=== PATIENT | female | born 1975 | race Caucasian/White ===

== ENCOUNTER → 2024-11-20 | Outpatient (CLI) | payer OTHER, SELFPAY ==
[2024-11-20 10:11] LABS: Collection Type, Urine Clean Catch
[2024-11-20 10:25] LABS: Basophils % (Auto) 1 % (0-2.5); Eosinophils # (Auto) 0.1 Thou/mm3 (0.0-0.5); Eosinophils % (Auto) 1 % (0-10); Hematocrit 34.3 % (36.0-46.0); Hemoglobin 11.7 g/dL (12.0-16.0); Immature Granulocytes % (Auto) 0 % (0-0); Immature Granulocytes Auto 0.02 Thou/mm3 (0.00-0.00); Lymphocytes # (Auto) 2.1 Thou/mm3 (1.0-4.8); Lymphocytes % (Auto) 36 % (10-50); Mean Corpuscular HGB Conc 34.1 g/dl (31.0-37.0); Mean Corpuscular Hemoglobin 29.8 pg (25.0-35.0); Mean Corpuscular Volume 87 fL (80-100); Monocytes # (Auto) 0.3 Thou/mm3 (0.0-0.8); Monocytes % (Auto) 5 % (0-12); Neutrophils # (Auto) 3.3 Thou/mm3 (1.8-7.7); Neutrophils % (Auto) 57 % (37-80); Nucleated Red Blood Cell % 0 /100 WBC (0); Platelet Count 268 Thou/mm3 (140-440); RDW Standard Deviation 42.5 fL (36.4-46.3); Red Blood Count 3.93 Miln/mm3 (4.00-5.20); White Blood Count 5.8 Thou/mm3 (3.6-11.0)
[2024-11-20 10:36] LABS: Bilirubin,Urine Negative (Negative); Blood,Urine Negative (Negative); Clarity,Urine Clear (Clear/Hazy); Color,Urine Lt-Yellow (Lt Yel-Yel); Glucose, Urine Negative (Negative); Ketones,Urine Negative (Negative); Leukocyte Esterase,Urine Positive (Negative); Nitrite,Urine Negative (Negative); PH,Urine 5.5 (5.0-7.0); Protein,Urine Negative (Neg - Trace); RBC,Urine 1 /hpf (0-3); Specific Gravity,Urine 1.018 (1.001-1.035); Squamous Epithelial Cell,Urine 8 /hpf (0-5); Urobilinogen,Urine Negative mg/dL (0.0-1.0); WBC,Urine 4 /hpf (0-5)
[2024-11-20 10:56] LABS: Ferritin 10 ng/mL (7.3-270.7)
[2024-11-20 11:03] LABS: Alanine Aminotransferase 16 U/L (10-49); Alkaline Phosphatase 99 U/L (46-116); Anion Gap 7 (7-16); Aspartate Amino Transferase < 8 U/L (0-34); BUN/Creatinine Ratio 13 Ratio (12-20); Bilirubin,Total 0.5 mg/dL (0.3-1.2); Blood Urea Nitrogen 8 mg/dL (9-23); Calcium 8.8 mg/dL (8.3-10.6); Calcium (Corrected) 8.8 mg/dL (8.5-10.1); Carbon Dioxide 26.6 mMol/L (20.0-31.0); Cardiac Risk Estimate 3.1 RATIO (3.7-5.6); Chloride 107 mMol/L (98-107); Cholesterol 173 mg/dL (132-200); Creatinine (Component) 0.6 mg/dL (0.6-1.3); Glucose 86 mg/dL (74-106); HDL Cholesterol 56 mg/dL (40-60); LDL Cholesterol,Calculated 84 mg/dL (0-130); Osmolality,Calculated 278 (275-295); Potassium 4.4 mMol/L (3.4-5.1); Sodium 141 mMol/L (136-145); Thyroid Stimulating Hormone 1.44 uIU/mL (0.55-4.78); Triglycerides 167 mg/dL (30-150); Uric Acid 4.9 mg/dL (3.1-7.8); Vitamin B12 > 2000 pg/mL (211-911); Vitamin D 25 Hydroxy Total 31.5 ng/mL (7.3-40.2); eGFR > 60 See Note
[2024-11-20 11:58] LABS: Glucose Estimated Average 105 mg/dL (80-131); Hemoglobin A1C 5.3 % Hgb (4.8-6.0)
== END | disposition home or self-care (01) ==
LOC: COPL 09:44
PROVIDERS: PCP Internal Medicine; Referring Provider Internal Medicine; Visit Provider Internal Medicine
DX: Z00.00 Encounter for general adult medical examination without abnormal findings (principal)
CPT/HCPCS: 36415; 80053; 80061; 81001; 82306; 82607; 82728; 83036; 84443; 84550; 85025

== ENCOUNTER 2024-12-27 10:35 | Outpatient (AMB) | payer OTHER, SELFPAY ==
[2024-12-27 11:01] VITALS: BP 106/70; PULSE 63; RESP 16; TEMP 36.2; O2SAT 97; BMI 39.2
--- NOTE | 2024-12-27 11:01 | GYNCLNT_ITS ---
Vital Signs 12/27/24 11:01 Height 1.57 m Height Method Stated Weight 97.182 kg Weight Measurement Method Standing Scale BMI 39.2 BP 106/70 Blood Pressure Source Automatic Cuff Blood Pressure Location Left Upper Arm Position Sitting Respiration 16 Pulse 63 Pulse Source Monitor Temp 97.2 F Temp Source Temporal Artery Scan Pulse Oximetry (%) 97 Oxygen Delivery Method Room Air Allergies/Home Meds Allergies & Medications Allergies latex Allergy (Intermediate, Verified 12/27/24 11:02) ITCHING, RASH, SWELLING ibuprofen Adverse Reaction (Intermediate, Verified 12/27/24 11:02) DUE TO GASTRIC BYPASS METAL Allergy (Unknown, Uncoded 12/27/24 11:02) BLISTERS Medication Reconciliation Midodrine * (PROAMATINE *) 5 mg PO BID #0 tabs 12/03/16 [History Confirmed 12/27/24] metoprolol tartrate 25 mg tablet 100 mg PO BID #0 tabs 12/03/16 [History Confirmed 12/27/24] amoxicillin 875 mg-potassium clavulanate 125 mg tablet 1 tab PO BID #14 tabs 05/16/24 [Rx Confirmed 12/27/24] cholecalciferol (vitamin D3) 25 mcg (1,000 unit) tablet (Vitamin D3) 25 mcg PO QDAY 05/16/24 [History Confirmed 12/27/24] estradiol 1 mg tablet 1 mg PO QDAY 05/16/24 [History Confirmed 12/27/24] galcanezumab-gnlm 120 mg/mL subcutaneous pen injector (Emgality Pen) 120 mg subcut QMONTH 05/16/24 [History Confirmed 12/27/24] magnesium 500 mg tablet 15 mg PO QDAY 05/16/24 [History Confirmed 12/27/24] multivitamin 1 tab PO QDAY 05/16/24 [History Confirmed 12/27/24] zwfcazme-bpqzbydtn-fnvwpskic 3.5 mg/mL-10,000 unit/mL-1 % ear solution 2 drp otic (ear) QDAY 05/16/24 [History Confirmed 12/27/24] pantoprazole 40 mg tablet,delayed release 40 mg PO QDAY 05/16/24 [History Confirmed 12/27/24] progesterone micronized 200 mg capsule 200 mg PO QDAY 05/16/24 [History Confirmed 12/27/24] ubrogepant 100 mg tablet (Ubrelvy) mg 05/16/24 [History Confirmed 12/27/24] Intake Visit Data Collection New Patient or Established: Established Patient (seen at [facility] within 3 years) Reason for Visit:: MENOPAUSE/HORMONE THERAPY Seen by Clinical Staff ONLY (RN/MA): No Cardiothoracic Anesthesia Technician Required: No Do You Feel Safe at Home: Yes Authorities Contacted: N/A PCP or OBGYN visit in last 3 months: No Hx Now: No Are you currently on any form of Control: No Pain Present Currently: No Pain Scale Used: Saenz-Rivera/Numerical Pain scale:: 0 Smoking Status Smoking Status: Never smoker Questionnaires Covid-19 Vaccine Questionnaire Has patient been vacinated for Covid-19 Have you been vacinated for Covid-19: Yes PHQ-9 PHQ-2 Over the last 2 weeks, how often have you been bothered by any of the following problems? 1. Little interest or pleasure in doing things: not at all 2. Feeling down, depressed, or hopeless: not at all Total score: 0 PHQ-9 3. Trouble falling or staying asleep, or sleeping too much: Not at all 4. Feeling tired or having little energy: Not at all 5. Poor appetite or overeating: Not at all 6. Feeling bad about yourself - or that you are a failure or have let yourself or your family down: Not at all 7. Trouble concentrating on things, such as reading the newspaper or watching television: Not at all 8. Moving or speaking so slowly that other people could have noticed? - Or the opposite - being so fidgety or restless that you have been moving around a lot more than usual: not at all 9. Thoughts that you would be better off or of hurting yourself in some way: Not at all Total score: 0 If you checked off any problems, how difficult have these problems made it for you to do your work, take care of things at home, or get along with other people?: not difficult at all Source: Developed by Drs. Ravindra Hinds, Jennifer Wagoner, Don Walker and colleagues, with an educational gricel from [employer]. 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) Respiratory Problems Asthma: No Pulmonary Embolism: No Sleep Apnea: No Stomache/Intestinal Problems Gall Bladder Disease: Yes (History of cholecystectomy in past) Obesity: Yes (History of gastric bypass in past) Genital/Urinary Problems Renal Disease: No Kidney Stones: No Reproductive Problems Breast Cancer: No Endometriosis: No Fibroids: No Genital Herpes: No Pelvic Inflammatory Disease: No Polycystic Ovarian Syndrome: No Previous Pregnancies: Yes (History of x 2 in the past) Uterine Prolapse: Yes (History of rectocele repair and sling but no hysterectomy) Musculoskeletal Problems Rheumatoid Arthritis: No Fibromyalgia: No Endocrine Problems Diabetes Mellitus Type 2: No Hyperthyroidism: No Hypothyroidism: No Systemic Lupus Erythematosus: No Blood Problems Anemia: Yes (Secondary to gastric bypass) Psychologic Problems Depression: No Anxiety: No Other Problems Hospitalization: Yes (For childbirth x 2 and multiple surgeries) Autoimmune Disease: No Blood Transfusions: No Anesthesia Reactions: No Surgical History Bariatric Surgery: Yes (Gastric bypass 2013) Breast Surgery: No Cholecystectomy: Yes (Laparoscopic cholecystectomy 1995) Additional Surgical History: Rectocele repair and sling placement 2023 laparos copic tubal ligation 1995, IVF x 2 after BTL which failed, NovaSure endometrial ablation History of Present Illness HPI Narrative Patient is a 49-year-old -0-2-2 history of vaginal delivery x 2 in the past. Her son was born in 1992 and her daughter was born in 1995. Patient then underwent a tubal ligation in 1995. She states she was 20 years old. At some point she changed her mind and wanted more children and attempted IVF x 2 that failed. This resulted in 2 miscarriages. She had gastric bypass in 2013 her gallbladder removed in 1995 and most recently a rectocele repair and sling placement. Dr. Navarrete did a NovaSure ablation on her a couple of years ago. I have no records except for her rectocele and sling placement with Dr. Swain which is on the computer. Patient states about 3 years ago she started noting vaginal dryness and Dr. Navarrete prescribed estrogen vaginal cream. She then started having some hot flashes and she gave her estradiol. She then gave her progesterone withdrawal. Patient would like her hormones refilled. Her primary care wanted her to see me instead of refilling her HRT. Patient is not due for a Pap smear until April and not due to a mammogram due for mammogram till July. 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 She does not have any hypertension. She has a history of gastric bypass and sometimes is anemic but has not required iron infusions or blood transfusions. She has a significant family history of autoimmune disorders in her family. Her dad suffers from rheumatoid arthritis and she had a sister that actually passed from lupus at age 19. Patient is going to see her primary care doctor coming up. Of note the patient has some irregular bleeding and had an ultrasound revealing a thickened stripe. Dr. Navarrete tried to perform a biopsy could not get this performed in the office. Patient is requesting a repeat ultrasound be performed. She is not necessarily postmenopausal she is perimenopausal. She has never gone a whole year without a cycle. She does report joint pain hot flashes night sweats difficulty sleeping and vaginal dryness. Review of Systems Constitutional Constitutional: Reports system reviewed and no additional complaints, except as documented Comments: Patient reports joint pain off her hormones. Her hips and back hurt especially. She reports hot flashes vaginal dryness and night sweats. She states her sling worked pretty well sometimes she has to wear a panty liner. Exam General General Appearance: alert, in no apparent distress, comfortable, cooperative, healthy appearing and well groomed Neck Neck exam: Present normal inspection, full ROM and trachea midline Chest Chest inspection: Present normal inspection and symmetric chest wall rise Resp Respiratory exam: Present normal lung sounds bilaterally Card Cardiovascular exam: Present regular rate, normal rhythm and normal heart sounds Abdominal Abdominal exam: Present soft and normal bowel sounds Psych Psychiatric exam: Present normal affect and normal mood Skin Skin exam: Present warm, dry, intact and normal color Assessment & Plan Diagnosis / Problem List (1) Abnormal perimenopausal bleeding: Status: Acute Assessment and Plan: Order transvaginal pelvic ultrasound. If lining is thick, we will need to go to the OR for hysteroscopy, dilation, curettage as patient was unable to be biopsied in the office and as patient has had an endometrial ablation in the past. (2) Perimenopausal symptoms: Status: Acute Assessment and Plan: Patient on estradiol 0.1 mg p.o. daily and Prometrium 200 mg p.o. nightly. Will refill these at this time. Patient will follow-up in April for a Pap smear and we will order her mammogram at that time. Please see okay so Office Procedures OB Clinic LOC & Office Proc's Nursing/Assessment Patient Status: Established Patient OB Clinic Nursing Assessment: Medication Reconciliation, Update PMH in EMR and Vital Signs OB Clinic Coordination of Care: Complex Care and Chronic Disease 1-5, Consent,records obtained, informed consent, Education Simp Pt/Fam, Lab and Imaging orders and Staff clarify orders Established Patient Charge Established Patient Point Assignment: 100 Established Patient Point Charge: EP Level 3 (80-115)
== END 2024-12-27 11:48 | disposition home or self-care (01) ==
LOC: HODSOBC 10:35
PROVIDERS: PCP Internal Medicine; Referring Provider Internal Medicine; Supervising Provider Obstetrics & Gynecology; Visit Provider Obstetrics & Gynecology
DX: N92.4 Excessive bleeding in the premenopausal period (principal); R23.2 Flushing; Z98.84 Bariatric surgery status; Z98.51 Tubal ligation status; G90.A Postural orthostatic tachycardia syndrome [POTS]; Z90.49 Acquired absence of other specified parts of digestive tract; Z98.890 Other specified postprocedural states; Z87.42 Personal history of other diseases of the female genital tract; Z79.899 Other long term (current) drug therapy; Z79.3 Long term (current) use of hormonal contraceptives
CPT/HCPCS: 99213; G0463

== ENCOUNTER → 2025-01-15 | Outpatient (CLI) | payer OTHER, SELFPAY ==
[2025-01-15 11:52] LABS: Sed Rate (ESR) 7 mm/hr (0-30)
[2025-01-22 07:22] LABS: ANA Screen, IFA NEGATIVE (NEGATIVE); CCP Antibody (IgG)* <16 Units; DNA (ds) Antibody* 4 IU/mL
== END | disposition home or self-care (01) ==
LOC: COPL 09:19
PROVIDERS: PCP Internal Medicine; Referring Provider Internal Medicine; Visit Provider Internal Medicine
DX: M12.38 Palindromic rheumatism, other specified site (principal)
CPT/HCPCS: 36415; 85652; 86038; 86200; 86225

== ENCOUNTER → 2025-07-16 | Outpatient (CLI) | payer OTHER, SELFPAY ==
[2025-07-16 18:06] LABS: Basophils # (Auto) 0.0 Thou/mm3 (0.0-0.2); Basophils % (Auto) 0 % (0-2.5); Eosinophils # (Auto) 0.1 Thou/mm3 (0.0-0.5); Eosinophils % (Auto) 1 % (0-10); Hematocrit 36.5 % (36.0-46.0); Hemoglobin 12.2 g/dL (12.0-16.0); Immature Granulocytes Auto 0.02 Thou/mm3 (0.00-0.00); Lymphocytes # (Auto) 2.6 Thou/mm3 (1.0-4.8); Lymphocytes % (Auto) 38 % (10-50); Mean Corpuscular HGB Conc 33.4 g/dl (31.0-37.0); Mean Corpuscular Hemoglobin 29.8 pg (25.0-35.0); Mean Corpuscular Volume 89 fL (80-100); Monocytes # (Auto) 0.4 Thou/mm3 (0.0-0.8); Monocytes % (Auto) 5 % (0-12); Neutrophils # (Auto) 3.9 Thou/mm3 (1.8-7.7); Neutrophils % (Auto) 56 % (37-80); Nucleated Red Blood Cell # 0.00 Thou/mm3 (0.00-0.00); Nucleated Red Blood Cell % 0 /100 WBC (0); Platelet Count 263 Thou/mm3 (140-440); RDW Standard Deviation 42.7 fL (36.4-46.3); Red Blood Count 4.10 Miln/mm3 (4.00-5.20); White Blood Count 7.0 Thou/mm3 (3.6-11.0)
[2025-07-16 18:17] LABS: Free T4 (Free Thyroxine) 1.16 ng/dL (0.89-1.76); Thyroid Stimulating Hormone 2.48 uIU/mL (0.55-4.78)
[2025-07-16 20:36] LABS: Follicle Stimulating Hormone 19.48 mIU/mL (See Note)
[2025-07-26 15:34] LABS: EBV EBNA Ab (IgG) >600.00 U/mL; EBV VCA Ab (IgG) >750.00 U/mL; EBV VCA Ab (IgM) <36.00 U/mL
[2025-07-27 06:33] LABS: ANA Screen, IFA NEGATIVE (NEGATIVE); CMV Antibody (IgG) >10.00 U/mL; CMV Antibody (IgM) <30.00 AU/mL; EBV Ab Interpretation PAST; Estrogen, Total, Serum* 301 pg/mL; Luteinizing Hormone* 9.8 mIU/mL; Progesterone,LC/MS* 0.2 ng/mL
== END | disposition home or self-care (01) ==
PROVIDERS: PCP Internal Medicine; Referring Provider Internal Medicine; Visit Provider Internal Medicine
DX: M79.7 Fibromyalgia (principal); I49.8 Other specified cardiac arrhythmias; N95.1 Menopausal and female climacteric states
CPT/HCPCS: 36415; 82672; 83001; 83002; 84144; 84439; 84443; 85025; 86038; 86644; 86645; 86664; 86665